=== PATIENT | female | born 1980 | race Caucasian/White ===

== ENCOUNTER 2017-01-18 16:47 | Observation (INO) | payer MEDICAID ==
[~2017-01-18] VITALS: Ht 152.4 cm; Wt 78.9 kg
[2017-01-18 17:55] VITALS: BP 104/61
== END 2017-01-18 20:25 | disposition home or self-care (01) ==
LOC: MLD 16:47
PROVIDERS: ADMIT Obstetrics & Gynecology; ATTEND Obstetrics & Gynecology
DX: O36.8120 Decreased fetal movements, second trimester, not applicable or unspecified (principal); Z3A.26 26 weeks gestation of pregnancy
CPT/HCPCS: 59025; 76805; 81000; G0378; Q0092

== ENCOUNTER 2017-02-18 14:52 | Emergency (ER) | payer MEDICAID ==
[~2017-02-18] VITALS: Ht 152.4 cm; Wt 78.9 kg
[2017-02-18 12:49] VITALS: BP 105/58
[2017-02-18 13:25] LABS: BASOPHILS % (AUTO) 0.5 % (0.0-2.0); EOSINOPHILS # (AUTO) 0.1 K/uL (0-0.4); EOSINOPHILS % (AUTO) 1.3 % (0.0-4.0); HEMATOCRIT 32.4 % (36-48); HEMOGLOBIN 10.6 g/dL (12.0-16.0); LYMPHOCYTES # (AUTO) 1.4 K/uL (2.5-16.5); LYMPHOCYTES % (AUTO) 13.8 % (20.5-51.1); MEAN CORPUSCULAR HEMOGLOBIN 27 pg (27-31); MEAN CORPUSCULAR HGB CONC 33 g/dL (33-37); MEAN CORPUSCULAR VOLUME 83 fL (80-94); MONOCYTES # (AUTO) 0.5 K/uL (0.8-1.0); MONOCYTES % (AUTO) 5.6 % (1.7-9.3); NEUTROPHILS # (AUTO) 7.8 K/uL (1.8-7.7); NEUTROPHILS % (AUTO) 78.8 % (42.2-75.2); PLATELET COUNT (AUTO) 141 K/uL (140-450); RED BLOOD CELL COUNT(AUTO) 3.89 MIL/uL (4.20-5.40); RED CELL DISTRIBUTION WIDTH 12.7 % (11.6-13.7); WHITE BLOOD COUNT (AUTO) 9.8 K/uL (4.8-10.8)
[2017-02-18 13:54] LABS: APPEARANCE,URINE SL CLOUDY (CLEAR); BILIRUBIN,URINE 1+ (NEGATIVE); BLOOD, URINE NEGATIVE (NEGATIVE); COLOR,URINE YELLOW (YELLOW); LEUKOCYTE ESTERASE ,URINE 1+ (NEGATIVE); NITRITE, URINE NEGATIVE (NEGATIVE); UGLUCOSE NEGATIVE (NEGATIVE)
[2017-02-18 14:08] LABS: BARBITURATE, URINE NEGATIVE ng/ml (NEG <=200); BENZODIAZEPINE, URINE NEGATIVE ng/mL (NEG <=200); CANNABINOID, URINE NEGATIVE ng/mL (NEG <=50); COCAINE, URINE NEGATIVE ng/mL (NEG <=300); OPIATE, URINE NEGATIVE ng/mL (NEG <=2000); PHENCYCLIDINE SCREEN,URINE NEGATIVE ng/mL (NEG <=25)
[2017-02-18 14:15] LABS: RBC,URINE 0-5 (RARE) /HPF (0-5); YEAST,URINE Few /HPF (None Seen)
[2017-02-18 15:13] VITALS: BP 110/66
--- NOTE | 2017-02-18 15:24 | NUR ---
ER MD PATINO BY BEDSIDE
[2017-02-18] MEDS ORDERED: cefTRIAXone 2,000 MG in DEXTROSE 5% 100 ML IV ONE (15:25)
[2017-02-18] MEDS ORDERED: ACETAMINOPHEN EXTRA STRENGTH 500 MG TAB PO ONE (15:25)
[2017-02-18] MEDS ORDERED: NACL 0.9% 2,000 ML IV SCH (15:25)
--- NOTE | 2017-02-18 15:26 | NUR ---
36F BIB FATHER WITH C/O 09/16 09/16 "SHARP" NON RADIATING CONSTANT ANTERIOR HEADACHE. PT IS 32WKS PREGANT. PT RETUREND FROM L&D. PT DENIES ANY VAG BLEEDING OR ABD CRAMPING. PT IS AOX4 WITH STEADY GAIT. POSITIONED TO COMFORT, BED DOWN. NAD. VSS. WILL CONTINUE TO MONITOR.
[2017-02-18] MEDS ORDERED: cefTRIAXone 2,000 MG VIAL ONE (15:57)
[2017-02-18 17:19] VITALS: BP 109/57
--- NOTE | 2017-02-18 17:19 | NUR ---
Patient discharged with v/s stable. Written and verbal after care instructions given and explained. Patient alert, oriented and verbalized understanding of instructions. Ambulatory with steady gait. All questions addressed prior to discharge. ID band removed. Patient advised to follow up with PMD. Rx of Keflex, Zofran, and Tylenol given. Patient educated on indication of medication including possible reaction and side effects. Opportunity to ask questions provided and answered.
[2017-02-18 19:59] LABS: PROTHROMBIN TIME 9.5 secs (10.8-13.4)
== END 2017-02-18 17:19 | disposition home or self-care (01) ==
LOC: MED 14:52 → EDSTATUS 14:52 → MED 17:19
DX: O23.43 Unspecified infection of urinary tract in pregnancy, third trimester (principal); Z3A.32 32 weeks gestation of pregnancy
CPT/HCPCS: 36415; 76815; 80305; 81000; 81001; 82948; 85025; 85379; 85384; 85610; 85730; 87086; 96365; 99285; J0696; J7030; J7060; Q0092